=== PATIENT | female | born 2005 | race Caucasian/White ===

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

== ENCOUNTER 2024-09-06 20:00 | Inpatient (IN) | payer OTHER ==
[~2024-09-06] VITALS: Ht 172.7 cm; Wt 98.6 kg
[~2024-09-06 20:00] MED LIST: CEPH500 PO; IBU600 MG PO
[2024-09-06] MEDS ORDERED: OXYTOCIN/RINGER'S LACTATE 500 ML IV PRN (20:10)
[2024-09-06] MEDS ORDERED: FentaNYL 2mcg/ml-Bup 0.1% Epd 250 ML EPI PRN (20:10)
[2024-09-06] MEDS ORDERED: Carboprost Tromethamine 250 MCG/ML 1ML Amp IM PRN (20:10)
[2024-09-06] MEDS ORDERED: Oxytocin 10 Unit / ML Vial IM PRN (20:10)
[2024-09-06] MEDS ORDERED: ePHEDrine Sulfate 50 MG/ML 1ML Injection XX PRN (20:10)
[2024-09-06] MEDS ORDERED: Methylergonovine Maleate 0.2MG / ML 1ML Amp IM PRN (20:10)
[2024-09-06] MEDS ORDERED: Tranexamic Acid 100 ML IV SCH (20:10)
[2024-09-06] MEDS ORDERED: Ondansetron HCl 2 MG / ML 2ML Vial IV PRN (20:15)
[2024-09-06 20:20] VITALS: BP 136/83
[2024-09-06 20:44] LABS: BASOPHILS ABSOLUTE AUTO 0.02 K/mm3 (0.00-0.23); BASOPHILS PERCENT AUTO 0 % (0-2); EOSINOPHILS ABSOLUTE AUTO 0.04 K/mm3 (0.00-0.68); EOSINOPHILS PERCENT AUTO 0 % (0-6); Hematocrit 36.7 % (33.0-51.0); Hemoglobin 12.6 g/dL (11.5-16.0); IMMATURE GRAN ABSOLUTE AUTO 0.08 K/mm3 (0.00-0.10); IMMATURE GRAN PERCENT AUTO 1 % (0-1); LYMPHOCYTES ABSOLUTE AUTO 2.24 K/mm3 (0.84-5.20); LYMPHOCYTES PERCENT AUTO 16 % (21-46); MONOCYTES ABSOLUTE AUTO 1.02 K/mm3 (0.16-1.47); MONOCYTES PERCENT AUTO 7 % (4-13); Mean Corpuscular HGB Conc 34.3 g/dL (31.5-36.5); Mean Corpuscular Volume 85 fL (80-100); NEUTROPHILS ABSOLUTE AUTO 10.94 K/mm3 (1.96-9.15); NEUTROPHILS PERCENT AUTO 76 % (41-73); NRBC ABSOLUTE 0.00 K/mm3 (0.00-0.02); NRBC Auto 0.0 /100 WBC (0.0-0.2); Platelet Count 203 K/mm3 (150-400); RDW Coefficient Variation 13.5 % (11.7-14.2); RDW Standard Deviation 41.8 fL (35.1-46.3)
[2024-09-06] MEDS ORDERED: FentaNYL Citrate 50 MCG/ML 2 ML Injection IV PRN (20:45)
[2024-09-06] MEDS ORDERED: PRENATAL TABLE1 EAC2 PO (21:02)
[2024-09-06 21:34] VITALS: BP 129/80
[2024-09-07] VITALS (14 sets, daily range): BP systolic 122–150; BP diastolic 58–90
[2024-09-07] MEDS ORDERED: Benzocaine Topical Anesthetic Spray 60GM TOP PRN (00:55)
[2024-09-07] MEDS ORDERED: OXYTOCIN/RINGER'S LACTATE 500 ML IV SCH (00:55)
[2024-09-07] MEDS ORDERED: Methylergonovine Maleate 0.2MG / ML 1ML Amp IM PRN (01:00)
[2024-09-07] MEDS ORDERED: OxyCODONE 5 mg/Acetamin 325 mg TABLET PO PRN (01:00)
[2024-09-07] MEDS ORDERED: Witch Hazel/Glycerin PADS TOP PRN (01:05)
[2024-09-07] MEDS ORDERED: Ketorolac Tromethamine 30mg Vial IV PRN (01:05)
[2024-09-07] MEDS ORDERED: Prenatal Vit/FE Fumarate/FA 1 Tab PO SCH (09:00)
[2024-09-07 12:47] LABS: Hematocrit 35.3 % (33.0-51.0); Hemoglobin 12.0 g/dL (11.5-16.0); Mean Corpuscular HGB Conc 34.0 g/dL (31.5-36.5); Mean Corpuscular Volume 86 fL (80-100); NRBC ABSOLUTE 0.00 K/mm3 (0.00-0.02); NRBC Auto 0.0 /100 WBC (0.0-0.2); Platelet Count 195 K/mm3 (150-400); RDW Coefficient Variation 13.7 % (11.7-14.2); RDW Standard Deviation 42.9 fL (35.1-46.3)
[2024-09-08 00:39] VITALS: BP 122/58
[2024-09-08] MEDS ORDERED: IBUP800 PO (07:15)
[2024-09-08 07:32] VITALS: BP 130/78
[2024-09-08 10:50] VITALS: BP 120/70
--- NOTE | 2024-09-08 11:16 | NUR ---
PATIENT AND S/O GIVEN DC INSTRUCTIONS AND WHEN TO FOLLOW UP. WILL RETURN FOR PPFU WEDNESDAY WITH NURSE K[facility] MAKE APPT WITH Wes GABRIEL CNM FOR PPFU. QUESTIONS ANSWERED AND VERBALIZE UNDERSTANDING. MET WITH KAVTIA TIAN RN THIS MORNING AND WILL ESTABLISH APPTS WITH CHARLOTTE TIAN RN THROUGH [facility].
[2024-09-09 09:34] LABS: HEPATITIS C AB CIA INTERP Negative (Negative); HEPATITIS C ANTIBODY CIA INDEX 0.03 IV
== END 2024-09-08 11:42 | disposition home or self-care (01) | DRG 807 ==
LOC: OBS 20:00 → BC 20:05 → OBS 20:13 → BC 20:14
PROVIDERS: ADMIT Advanced Practice Midwife
PROC: 4A1HXCZ Monitoring of Products of Conception, Cardiac Rate, External Approach (ICD-10-PCS; 2024-09-06)
PROC: 10E0XZZ Delivery of Products of Conception, External Approach (ICD-10-PCS; principal; 2024-09-07)
DX: O69.81X0 Labor and delivery complicated by cord around neck, without compression, not applicable or unspecified (principal); Z37.0 Single live birth; Z3A.39 39 weeks gestation of pregnancy; O70.0 First degree perineal laceration during delivery
CPT/HCPCS: 36415; 85025; 85027; 86803; 86850; 86900; 86901; A9270; J1885; J3010

== ENCOUNTER → 2024-11-16 | Outpatient (CLI) | payer OTHER ==
[~2024-11-16] MED LIST changes: +IBUP800 PO; +PRENATAL TABLE1 EAC2 PO
== END ==
LOC: LAB 16:40 → LAB SHORT 16:40
DX: N30.01 Acute cystitis with hematuria (principal)
CPT/HCPCS: 87086